=== PATIENT | female | born 1955 | race Caucasian/White ===

== ENCOUNTER 2019-08-28 17:58 | Emergency (ER) | payer BC, OTHER ==
[~2019-08-28] VITALS: Ht 165.1 cm; Wt 58.4 kg
[2019-08-28 18:22] VITALS: BP 150/90
--- NOTE | 2019-08-28 18:27 | ED General ---
General Chief Complaint: Foreign Body Stated Complaint: PIECE OF MEAT STUCK THROAT Nursing Triage Note: Patient states a piece of meat is lodged in her esophagus. She states she is unable to swallow liquids or her secretions. Nursing Sepsis Screen: No Definite Risk History of Present Illness Date Seen by Provider: Aug 28, 2019 Time Seen by Provider: 18:00 Initial Comments The patient is a 64-year-old female with a history of prior Royal fundoplication who presents with concern for possible food bolus impaction. Patient notes that she was eating meat and swallowed a chunk of meat and felt it "catch" in her esophagus. She does have a sensation of fullness there and is not able to tolerate drinking fluids, as they just come back up. Onset of symptoms about 45 minutes ago. Patient states she had one prior episode that was very similar this year which resolved on its own without coming to the hospital. She felt well before swallowing the bolus of meat. She is speaking comfortably in full sentences and is not short of breath and appears in no acute distress upon initial assessment in the emergency department. Allergies and Home Medications Allergies Coded Allergies: ciprofloxacin (Verified Allergy, Unknown, 08/28/19) Patient Home Medication List Home Medication List Reviewed: Yes Review of Systems Review of Systems Constitutional: see HPI All Other Systems Reviewed Negative Unless Noted: Yes (Negative excepted noted.) Past [id number]-[id number]-Kwozqr Hx Past Med/Social Hx: Reviewed Nursing Past Med/Soc Hx Patient Social History Alcohol Use: Denies Use Recreational Drug Use: No Smoking Status: Never a Smoker 2nd Hand Smoke Exposure: No Recent Foreign Travel: No Contact w/Someone Who Travel: No Recent Infectious Disease Expo: No Recent Hopitalizations: No Physical Abuse: No Sexual Abuse: No Mistreated: No Fear: No Seasonal Allergies Seasonal Allergies: No Past Medical History Surgeries: Yes (Royal Fundoplication) Respiratory: No Cardiac: No Neurological: No Genitourinary: No Gastrointestinal: No Musculoskeletal: No Endocrine: No HEENT: No Cancer: No Psychosocial: No Integumentary: No Family Medical History Reviewed Nursing Family Hx Physical Exam Vital Signs Vital Signs - First Documented 08/28/19 18:05 Temp 36.6 Pulse 118 Resp 20 B/P (MAP) 150/90 (110) Pulse Ox 98 O2 Delivery Room Air Capillary Refill : Less Than 3 Seconds Height, Weight, BMI Height: '" Weight: lbs. oz. kg; 21.00 BMI Method: General Appearance: No Apparent Distress Comments This is an older female appearing nontoxic and in no acute distress. Head is normocephalic and atraumatic. Neck is supple and nontender. Oropharynx is moist. Lungs are clear to auscultation in all stations. There is a normal S1 and S2 without rubs or gallops and capillary refill is appropriate, less than 2 seconds globally. Abdomen is soft, nontender nondistended. Skin is warm and dry without cyanosis, clubbing or edema. Psychiatrically, the patient demonstrates appropriate mood and affect and is alert. Progress/Results/Core Measures Suspected Sepsis Recent Fever Within 48 Hours: No Infection Criteria Present: None New/Unexplained Altered Menta: No Sepsis Screen: No Definite Risk SIRS Temperature: Pulse: 118 Respiratory Rate: 20 Blood Pressure 150 /90 Mean: 110 Results/Orders Vital Signs/I&O 08/28/19 18:05 Temp 36.6 Pulse 118 Resp 20 B/P (MAP) 150/90 (110) Pulse Ox 98 O2 Delivery Room Air Capillary Refill : Less Than 3 Seconds Blood Pressure Mean: 110 Progress Note : Progress Note Plan was to be for glucagon trial and then reevaluation but patient fortunately experienced spontaneous resolution of her symptoms and feels that the food bolus passed and she is now able to tolerate liquids here in the emergency department without any issues whatsoever. She has no discomfort of any kind at this time. She feels well and would like to go home. We'll proceed with discharge home at this time. Patient is counseled to follow up very closely with her primary care physician the next 1-2 days and, given 2 episodes of food bolus impaction over the last 1 year, she is counseled that she should plan to follow up with [facility] for consideration of upper endoscopy. She understands and agrees. She understands that if she feels worse instead of better or develops other new symptoms of concern that she will need to return immediately for reevaluation. All questions are answered. Departure Impression Primary Impression: Impacted esophageal foreign body Disposition: HOME, SELF-CARE Condition: Improved Departure-Patient Inst. Patient Instructions: Foreign Body, Swallowed, Adult (DC) ERNESTO WASHINGTON MD Aug 28, 2019 18:27
== END 2019-08-28 18:30 | disposition home or self-care (01) ==
LOC: ER FS 18:00
DX: T18.128A Food in esophagus causing other injury, initial encounter (principal); Z88.1 Allergy status to other antibiotic agents; Z98.890 Other specified postprocedural states
CPT/HCPCS: 99282